=== PATIENT | female | born 1950 | race Caucasian/White ===

== ENCOUNTER 2020-05-26 15:50 | Outpatient (CLI) | payer MEDICARE, OTHER, SELFPAY ==
--- NOTE | 2020-05-26 | USCV_ITS ---
Devora Riojas Age: 70 Gender: F : 1950 Exam Date: 05/26/2020 16:07 Ordering Phys: Florina NesbittP Technologist: Denzel Hammer Exam Location: [facility] – [place]_ Indication: LEFT LEG PAIN, HISTORY OF DVT PROCEDURES: Venous duplex imaging was performed in only the left lower extremity. The following venous structures were evaluated: common femoral vein, profunda vein, proximal portion of the greater saphenous vein, superficial femoral vein, and the popliteal vein. In addition, the posterior tibial and peroneal trunk were evaluated. Serial compression, augmentation maneuvers, and spectral Doppler flow evaluation were performed. FINDINGS: There appears to be no thrombus in the deep system of the left lower extremity at this time. There does appear to be thrombus extending from below the knee to the groin within the left greater saphenous vein. At this time the thrombus does not extend into the common femoral vein but is in the saph fem junction. CONCLUSIONS No evidence of DVT in the above-mentioned identifiable veins. The greater saphenous vein was found to have a thrombus extending from the below-knee area up to the saphenofemoral junction. There is no involvement of the common femoral vein No similar previous studies are available for comparison Dr Maryellen Cano MD [facility] (Electronically Signed) Final Date: 26 May 2020 20:06 S
== END 2020-05-26 15:51 | disposition home or self-care (01) ==
LOC: RAD 15:59
PROVIDERS: PCP Registered Nurse; Visit Provider Registered Nurse
DX: Z86.718 Personal history of other venous thrombosis and embolism (principal); M79.605 Pain in left leg
CPT/HCPCS: 93971

== ENCOUNTER 2023-02-23 12:16 | Emergency (ER) | payer MEDICARE, OTHER, SELFPAY ==
[2023-02-23] VITALS (7 sets, daily range): BP systolic 137–171; BP diastolic 89–110; PULSE 62–86; RESP 16–18; TEMP 36.9; O2SAT 92–98
--- NOTE | 2023-02-23 12:37 | XRR_ITS ---
PROCEDURE INFORMATION: Exam: XR Chest Exam date and time: 02/23/2023 1:18 PM Age: 73 years old Clinical indication: Cough and dyspnea; Additional info: Dyspnea/cough TECHNIQUE: Imaging protocol: Radiologic exam of the chest. Views: 1 view. COMPARISON: No relevant prior studies available. FINDINGS: Lungs: There is no consolidation. Pleural spaces: There is no pleural effusion or pneumothorax. Heart/Mediastinum: Cardiomediastinal contours are unremarkable. Bones/joints: Bones are unremarkable. Other findings: Small nodules project over the upper lungs bilaterally, measuring up to 5 mm. XR/XR chest 1V portable [id number] IMPRESSION: 1. No acute findings. 2. Small bilateral lung nodules. Recommend nonemergent follow-up chest CT.
--- NOTE | 2023-02-23 12:45 | ED_ITS ---
HPI - Dizziness General: Chief Complaint: Dizziness Stated Complaint: seeing flahing , dizzy Time Seen by Provider: 02/23/23 12:24 Source: patient History of Present Illness: HPI Narrative: 73-year-old female who presents to the emergency room complaining of dizziness flashing in her vision on occasion she has no symptoms at this time. She describes a sparkling like sensation in her eyes. She had it intermittently for the last couple of days none at this time she has no associated chest pain or shortness of breath but does have some palpations. She has had previous MIs and also had a stroke in the past she has no localizing symptoms no disturbance of gait. MD elicited complaint: dizziness and lightheadedness Onset (ago): hour(s) Timing: gradual onset Description: lightheadedness Exacerbating factors: nothing Relieving factors: nothing Associated symptoms: Denies chest pain, chills, malaise, nausea, nasal congestion or vomiting Review of Systems Const: Denies: fever(s), chills, body aches, change in appetite, fatigue or malaise ENMT: Denies: throat pain, ear or mastoid pain, nasal discharge or nasal congestion Card: Denies: chest pain, edema, dyspnea on exertion or orthopnea Resp: Denies: dyspnea, productive cough or non-productive cough GI: Denies: abdominal pain, nausea, vomiting, hematemesis, coffee ground emesis, diarrhea, constipation, bloating, hematochezia or melena : Denies: flank pain, difficulty voiding, dysuria, urinary frequency or urinary urgency Skin/Breast: Denies: rash or pruritus PFSH ED PFSH: Medical History Anxiety Depression History of blood clots History of nephrolithotomy with removal of calculi Hypertension Myocardial infarct Stroke Surgical History History of cholecystectomy History of heart artery stent Family History Father CAD (coronary artery disease) Chronic kidney disease (CKD) Hypertension Mother Diabetes Hypertension Denies family history of Lung disease Cancer Stroke Social History Smoking and tobacco status: current every day smoker cigarettes Packs smoked per day: 0.5 Alcohol intake: never Substance/Drug Use: never Adopted: No Caregiver/support person: No Lives independently: No Household members: spouse Marital status: service: No Current occupational status: retired Sexually active: Yes Do you think of yourself as: Straight/Heterosexual Current gender identity: Female Physical Exam Const: COMMON NORMALS: no acute distress GENERAL APPEARANCE: cooperative and comfortable ORIENTATION/CONSCIOUSNESS: Yes awake, Yes oriented to person, Yes oriented to place and Yes oriented to time HENMT: COMMON NORMALS: normocephalic, atraumatic and hearing grossly normal bilaterally HEAD & SCALP: normocephalic and atraumatic Resp: COMMON NORMALS: normal respiratory effort, No retractions, No use of accessory muscles and clear to auscultation bilaterally AUSCULTATION: clear to auscultation bilaterally Cardio: COMMON NORMALS: regular rate, regular rhythm and No murmurs present (Cardio) RATE: regular rate RHYTHM: regular rhythm GI: COMMON NORMALS: Soft to palpation and No hepatosplenomegaly present AUSCULTATION: Yes normoactive bowel sounds PALPATION: Yes Soft to palpation, No Tenderness to palpation present (GI), No Guarding due to palpation present (GI) and Yes No hepatosplenomegaly present Extremity: COMMON NORMALS: normal to inspection, capillary refill normal, no clubbing, cyanosis or edema, no calf tenderness and no pedal edema Neuro: SENSORIUM/ORIENTATION: Yes oriented to person, Yes oriented to place and Yes oriented to time OTHER: Normal gait no focal neurologic symptoms no neurologic deficits. No facial asymmetry normal visual hernandez Skin: COMMON NORMALS: no rashes or lesions noted GENERAL SKIN EXAM: no sandra hes or lesions noted Course Vital Signs: Vital signs: Vital Signs Temperature 98.5 F 02/23/23 12:22 Pulse Rate 63 02/23/23 16:44 Respiratory Rate 16 02/23/23 16:44 Blood Pressure 161/96 02/23/23 16:44 Pulse Oximetry 92 02/23/23 16:44 Oxygen Delivery Me thod Room Air 02/23/23 16:44 MDM - Dizziness Medical Decision Making Labs imaging and EKG reviewed no acute findings. We will discharge patient home set up for an outpatient stress test. She has no focal neurologic deficits and her symptoms not reproducible she is ambulating the halls to and from the bathroom without significant abnormality or difficulty or gait disturbance. No evidence of posterior stroke. She does have some palpitations additionally she is also having some elevated blood pressure recommend she monitor this closely and follow-up with her primary care doctors any worsening or change symptoms return. Medical Records I reviewed the patient's medical records. Lab Data I reviewed the patient's lab results. 02/23/23 12:51 02/23/23 12:51 Radiology Impressions Chest X-Ray 02/23/23 12:37 IMPRESSION: 1. No acute findings. 2. Small bilateral lung nodules. Recommend nonemergent follow-up chest CT. Laboratory Results WBC 10.9 10^3/uL (4.0-10.0) H 02/23/23 12:51 RBC 5.28 10^6/uL (4.1-5.3) 02/23/23 12:51 Hgb 15.7 g/dL (11.5-15.3) H 02/23/23 12:51 Hct 47.1 % (37.0-47.0) H 02/23/23 12:51 MCV 89.2 fl (81-99) 02/23/23 12:51 MCH 29.7 pg (28.0-34.0) 02/23/23 12:51 MCHC 33.3 g/dL (30.0-36.0) 02/23/23 12:51 RDW 13.2 % (12.1-15.1) 02/23/23 12:51 Plt Count 262 10^3/cmm (130-400) 02/23/23 12:51 MPV 9.5 fL (7.4-10.4) 02/23/23 12:51 Neut % (Auto) 73.3 % 02/23/23 12:51 Lymph % (Auto) 19.8 % 02/23/23 12:51 Bracken % (Auto) 5.8 % 02/23/23 12:51 Eos % (Auto) 0.5 % 02/23/23 12:51 Baso % (Auto) 0.3 % 02/23/23 12:51 Neut # (Auto) 8.02 10^3/uL (1.8-7.7) H 02/23/23 12:51 Lymph # (Auto) 2.2 10^3/uL (0.8-4.8) 02/23/23 12:51 Bracken # (Auto) 0.6 10^3/uL (0.2-0.9) 02/23/23 12:51 Eos # (Auto) 0.1 10^3/uL (0.0-0.8) 02/23/23 12:51 Baso # (Auto) 0.0 10^3/uL (0.0-0.1) 02/23/23 12:51 Nucleated RBC % (auto) 0 % 02/23/23 12:51 Nucleated RBCs # 0.0 /100WBC 02/23/23 12:51 Sodium 136 mmol/L (136-145) 02/23/23 12:51 Potassium 3.7 mmol/L (3.5-5.1) 02/23/23 12:51 Chloride 101 mmol/L (98-107) 02/23/23 12:51 Carbon Dioxide 24 mmol/L (22-29) 02/23/23 12:51 Anion Gap 14.7 (5-19) 02/23/23 12:51 BUN 12 mg/dL (8-23) 02/23/23 12:51 Creatinine 0.8 mg/dL (0.5-0.9) 02/23/23 12:51 GFR Calculation Not Reportable 02/23/23 12:51 Glucose 163 mg/dL (65-115) H 02/23/23 12:51 Calculated Osmolality 285 mOsm/kg (285-295) 02/23/23 12:51 Calcium 9.5 mg/dL (8.5-10.5) 02/23/23 12:51 Total Bilirubin 0.4 mg/dL (0.15-1.2) 02/23/23 12:51 AST 16 U/L (0-32) 02/23/23 12:51 ALT 10 U/L (0-33) 02/23/23 12:51 Alkaline Phosphatase 68 U/L (35-105) 02/23/23 12:51 Troponin T Baseline 52 ng/L (0-10) H 02/23/23 12:51 Troponin T 120 Minute 54.95 ng/L (0-10) H 02/23/23 15:21 Delta Troponin T 2.95 ABS# (0-10) 02/23/23 15:21 Total Protein 6.6 g/dL (6.6-8.7) 02/23/23 12:51 Albumin 3.7 g/dL (3.5-5.2) 02/23/23 12:51 Globulin 2.9 g/dL (1.3-4.6) 02/23/23 12:51 Urine Color Yellow (Yellow) 02/23/23 14:16 Urine Appearance Clear (CLEAR) 02/23/23 14:16 Urine pH 6 (5-7) 02/23/23 14:16 Ur Specific Celoron 1.010 (1.005-1.030) 02/23/23 14:16 Urine Protein Neg (Negative) 02/23/23 14:16 Urine Glucose (UA) Norm (Normal) 02/23/23 14:16 Urine Ketones 1+ (Negative) H 02/23/23 14:16 Urine Blood 2+ (Negative) H 02/23/23 14:16 Urine Nitrate Negative (Negative) 02/23/23 14:16 Urine Bilirubin Neg (Negative) 02/23/23 14:16 Urine Urobilinogen 1 mg/dL (Negative) H 02/23/23 14:16 Ur Leukocyte Esterase Negative (Negative) 02/23/23 14:16 Urine RBC 0-4 /hpf (0-2) H 02/23/23 14:16 Urine WBC None /hpf (0-5) 02/23/23 14:16 Ur Squamous Epith Cells 0-4 /hpf (0-5) H 02/23/23 14:16 Amorphous Sediment Not Reportable 02/23/23 14:16 Urine Bacteria Trace /hpf (NONE) 02/23/23 14:16 Discharge Plan Discharge Patient Disposition: Home Clinical Impression: Elevated blood pressure reading, Dizziness, Hx of coronary artery disease Condition: Stable Prescriptions: No Action aspirin [Murali Chewable Aspirin] 81 mg tablet,chewable 81 mg PO DAILY cholecalciferol (vitamin D3) 1,250 mcg (50,000 unit) capsule 1,250 mcg PO BID famotidine 20 mg tablet 20 mg PO BID pantoprazole [Protonix] 20 mg tablet,delayed release (DR/EC) 20 mg PO DAILY clonazepam 0.5 mg tablet 0.5 mg PO TID PRN (Reason: Anxiety) metoprolol succinate 25 mg tablet extended release 24 hr 25 mg PO DAILY loratadine [Allergy Relief (loratadine)] 10 mg tablet 10 mg PO DAILY simvastatin 10 mg tablet 10 mg PO DAILY Eliquis 5 mg tablet 5 mg PO BID 90 Days Qty: 180 0RF Rx Instructions: 340B docusate sodium 50 mg Capsule 50 mg PO BID levothyroxine 50 mcg tablet 50 mcg PO DAILY CoQ-10 30 mg Capsule 30 mg PO DAILY Discharge Orders: Discharge ED (Routine); Ordered 02/23/23 Ordered By: Gordo Duncan Referrals: Florina Nesbitt FNP [Primary Care Provider] - Discharge Diet: Usual diet Discharge Activity: Increase activity as tolerated Patient Instructions: Opioid Safety, Pain Management Activity Restrictions/Additional Instructions: Monitor your blood pressure daily and log your blood pressures to show your primary care doctor. Contact your primary care doctor for follow-up sometime within the next week if at all possible. Continue current medications. Avoid strenuous activity Case management make arrangements for you to outpatient cardiac stress test. Coding Level of Care Code ED Lease Administrator for Chanell Banda
[2023-02-23 12:57] LABS: Basophils % 0.3 %; Eosinophils # 0.1 10^3/uL (0.0-0.8); Eosinophils % 0.5 %; Hematocrit 47.1 % (37.0-47.0); Hemoglobin 15.7 g/dL (11.5-15.3); Lymphocytes # 2.2 10^3/uL (0.8-4.8); Lymphocytes % 19.8 %; Mean Corpuscular HGB Conc 33.3 g/dL (30.0-36.0); Mean Corpuscular Hemoglobin 29.7 pg (28.0-34.0); Mean Corpuscular Volume 89.2 fl (81-99); Mean Platelet Volume 9.5 fL (7.4-10.4); Monocytes # 0.6 10^3/uL (0.2-0.9); Monocytes % 5.8 %; Neutrophils # 8.02 10^3/uL (1.8-7.7); Neutrophils % 73.3 %; Nucleated Red Blood Cells % 0 %; Platelet Count 262 10^3/cmm (130-400); Red Blood Count 5.28 10^6/uL (4.1-5.3); Red Cell Distribution Width 13.2 % (12.1-15.1); White Blood Count 10.9 10^3/uL (4.0-10.0)
--- NOTE | 2023-02-23 12:57 | ECG_ITS ---
[facility] Test Date: 2023-02-23 Pat Name: Devora Riojas Department: Room: Gender: Female Oil Heaterman: : 1950 Requested By: Gordo Parks Order Number: [id number] Shelia MD: Art Watts M.D. Measurements Intervals [place] Rate: 74 P: 52 VT: 132 QRS: 5 QRSD: 85 T: 61 QT: 403 QTc: 448 Interpretive Statements SINUS RHYTHM No previous ECG available for comparison Electronically Signed On 02-23-2023 18:24:26 CDT by Art Watts M.D. [id number]
--- NOTE | 2023-02-23 13:16 | PC.NURSE ---
PT HAS DIZZINESS AND VISION CHANGES. STROKE SCALE WAS COMPLETED BY NURSE AND PT SCORED A 0. PT IS AT BASELINE AND HAS NO LKW. PHYSICIAN NOTIFIED NO FURTHER ORDERS
[2023-02-23 13:26] LABS: Troponin(5th) Baseline 52 ng/L (0-10)
[2023-02-23 13:29] LABS: Alanine Aminotransferase 10 U/L (0-33); Albumin Level 3.7 g/dL (3.5-5.2); Alkaline Phosphatase 68 U/L (35-105); Aspartate Amino Transferase 16 U/L (0-32); Blood Urea Nitrogen 12 mg/dL (8-23); Calcium 9.5 mg/dL (8.5-10.5); Carbon Dioxide 24 mmol/L (22-29); Chloride 101 mmol/L (98-107); Globulin 2.9 g/dL (1.3-4.6); Glucose 163 mg/dL (65-115); Osmolality Calculated 285 mOsm/kg (285-295); Sodium 136 mmol/L (136-145); Total Bilirubin 0.4 mg/dL (0.15-1.2); Total Protein 6.6 g/dL (6.6-8.7)
[2023-02-23 13:33] LABS: Anion Gap 14.7 (5-19); Potassium 3.7 mmol/L (3.5-5.1)
[2023-02-23 14:46] LABS: Bilirubin Urine Neg (Negative); Blood Urine 2+ (Negative); Glucose Urine UA Norm (Normal); Ketones Urine 1+ (Negative); Nitrate Urine Negative (Negative); Protein Urine Neg (Negative); Urine Appearance Clear (CLEAR); Urine Color Yellow (Yellow); Urobilinogen Urine 1 mg/dL (Negative); pH Urine 6 (5-7)
[2023-02-23 14:47] LABS: Leukocyte Esterase Urine Negative (Negative)
[2023-02-23 14:49] LABS: Add Urine Microscopic? YES
[2023-02-23 14:50] LABS: Add Urine Culture? No; Bacteria Urine TRACE /hpf; RBC Urine 0-4 /hpf (0-2); Squamous Epithelial Cell Urine 0-4 /hpf (0-5)
--- NOTE | 2023-02-23 14:51 | ECG_ITS ---
[facility] Test Date: 2023-02-23 Pat Name: Devora Riojas Department: Room: Gender: Female Exchange Administrator: : 1950 Requested By: Gordo Parks Order Number: [id number] Reading MD: Art Watts M.D. Measurements Intervals [place] Rate: 63 P: 61 ND: 151 QRS: 13 QRSD: 88 T: 63 QT: 441 QTc: 453 Interpretive Statements SINUS RHYTHM Compared to ECG 02/23/2023 13:09:43 No significant changes Electronically Signed On 02-23-2023 18:26:32 CDT by Art Watts M.D. [id number]
[2023-02-23 16:22] LABS: Troponin 5 2HR 54.95 ng/L (0-10)
[2023-02-23 16:23] LABS: Troponin 5 2HR Delta 2.95 ABS# (0-10)
--- NOTE | 2023-02-24 11:54 | DCPLANNER ---
Addendum entered by Martha Restrepo 03/12/23 14:40: counseling case manager received notification from centralized scheduling about the pending order for a stress test: I have tried to reach this patient 3 different times and 3 different days. I have left voicemails with all calls. ?I am going to inactivate the account. My enterprise systems manager Analy said I should send you this email. Devora Riojas 54 Selena Scan Thank You [facility] Centralized Scheduling [id number] Original Note: counseling case manager had message to schedule an outpatient stress test for patient. counseling case manager faxed signed order to centralized scheduling, who will call patient with appointment information.
== END 2023-02-23 17:22 | disposition home or self-care (01) ==
PROVIDERS: Emergency Provider Family Medicine; PCP Registered Nurse
DX: R42 Dizziness and giddiness (principal); R03.0 Elevated blood-pressure reading, without diagnosis of hypertension
CPT/HCPCS: 36415; 71045; 80053; 81001; 84484; 85025; 93005; 99285

== ENCOUNTER 2024-07-04 09:53 | Emergency (ER) | payer MEDICARE, OTHER, SELFPAY ==
[2024-07-04] VITALS (38 sets, daily range): BP systolic 124–166; BP diastolic 74–100; PULSE 64–82; RESP 11–27; TEMP 36.8; O2SAT 91–96; BMI 29.8
--- NOTE | 2024-07-04 10:11 | ECG_ITS ---
[facility] Test Date: 2024-07-04 Pat Name: Devora Riojas Department: Room: Gender: Female Community Health Promoter: : 1950 Requested By: Elise Parks Order Number: [id number] Shelia MD: Zaki Durand M.D. Measurements Intervals [place] Rate: 81 P: 69 DE: 146 QRS: 22 QRSD: 83 T: 69 QT: 391 QTc: 455 Interpretive Statements SINUS RHYTHM Compared to ECG 02/23/2023 14:51:22 No significant changes Electronically Signed On 07-05-2024 20:14:16 RESERVATIONS CLERK by Zaki Durand M.D. [id number]
--- NOTE | 2024-07-04 10:11 | XRR_ITS ---
PROCEDURE INFORMATION: Exam: XR Chest Exam date and time: 07/04/2024 10:25 AM Age: 74 years old Clinical indication: Pain; Chest pressure; Additional info: Chest pain TECHNIQUE: Imaging protocol: Radiologic exam of the chest. Views: 1 view. COMPARISON: CR (CHEST, ) 02/23/2023 1:18 PM FINDINGS: Lungs: The lungs are hyperinflated. No consolidation is appreciated. Pleural spaces: Unremarkable. No pleural effusion. No pneumothorax. Heart/Mediastinum: The heart is slightly enlarged. There is calcified plaque involving the aorta. Bones/joints: Unremarkable. XR/XR chest 1V portable [id number] IMPRESSION: 1. Mild cardiomegaly. 2. Lung hyperinflation.
[2024-07-04 10:20] LABS: Basophils # 0.1 10^3/uL (0.0-0.1); Basophils % 0.4 %; Eosinophils # 0.1 10^3/uL (0.0-0.8); Eosinophils % 0.4 %; Hematocrit 49.8 % (36-47); Lymphocytes # 2.3 10^3/uL (0.8-4.8); Mean Corpuscular HGB Conc 32.9 g/dL (30-55); Mean Corpuscular Hemoglobin 29.2 pg (27-33); Mean Corpuscular Volume 88.6 fl (85-98); Mean Platelet Volume 9.6 fL (7.4-10.4); Monocytes # 0.8 10^3/uL (0.2-0.9); Monocytes % 6.6 %; Neutrophils # 8.24 10^3/uL (1.8-7.7); Neutrophils % 72.2 %; Nucleated Red Blood Cells % 0 %; Platelet Count 285 10^3/cmm (157-399); Red Blood Count 5.62 10^6/uL (3.85-5.65); Red Cell Distribution Width 13.1 % (12.1-15.1); White Blood Count 11.41 10^3/uL (3.29-11.43)
--- NOTE | 2024-07-04 10:22 | W.ED.CHESTPA ---
HPI - Chest Pain General: Chief Complaint: Chest Pain Stated Complaint: burning sensation in chest and rt arm Time Seen by Provider: 07/04/24 09:56 History of Present Illness: 74-year-old female with a history of coronary artery disease, hypertension and pulmonary embolism with chronic Eliquis anticoagulation who presents emergency room today after having had some chest pain yesterday. She had a burning chest pain across her chest. She says it felt similar to when she had a heart attack previously but just not as bad. She thought it would go away so she did not come in. And has resolved at this time but she still feels weak. Generalized weakness. Nothing focal. No new cough. No focal motor deficits. States has been having fairly regular headaches recently. No altered mental status. No lower extremity swelling. No nausea or vomiting. Related Data Home Medications Medication Instructions Recorded Confirmed aspirin 81 mg chewable tablet 81 mg PO DAILY 08/01/22 02/23/23 (Murali Chewable Low Dose Aspirin) cholecalciferol (vitamin D3) 1,250 1,250 mcg PO BID 08/01/22 02/23/23 mcg (50,000 unit) capsule clonazepam 0.5 mg tablet 0.5 mg PO TID PRN Anxiety 08/01/22 02/23/23 famotidine 20 mg tablet 20 mg PO BID 08/01/22 02/23/23 loratadine 10 mg tablet (Allergy 10 mg PO DAILY 08/01/22 02/23/23 Relief (loratadine)) metoprolol succinate 25 mg 25 mg PO DAILY 08/01/22 02/23/23 tablet,extended release 24 hr pantoprazole 20 mg tablet,delayed 20 mg PO DAILY 08/01/22 02/23/23 release (Protonix) simvastatin 10 mg tablet 10 mg PO DAILY 08/01/22 02/23/23 coenzyme Q10 30 mg capsule 30 mg PO DAILY 02/23/23 02/23/23 docusate sodium 50 mg capsule 50 mg PO BID 02/23/23 02/23/23 levothyroxine 50 mcg tablet 50 mcg PO DAILY 02/23/23 02/23/23 Previous Rx's Medication Instructions Recorded apixaban 5 mg tablet (Eliquis) 5 mg PO BID 90 days #180 tabs 08/01/22 Allergies Allergy/AdvReac Type Severity Reaction Status Date / Time codeine Allergy upset Verified 02/23/23 12:28 stomach lovastatin Allergy Unknown Verified 02/23/23 12:28 Review of Systems Narrative: Constitutional symptoms: Negative except as documented in HPI. Skin symptoms: Negative except as documented in HPI. Eye symptoms: Negative except as documented in HPI. ENMT symptoms: Negative except as documented in HPI. Respiratory symptoms: Negative except as documented in HPI. Cardiovascular symptoms: Negative except as documented in HPI. Gastrointestinal symptoms: Negative except as documented in HPI. Genitourinary symptoms: Negative except as documented in HPI. Musculoskeletal symptoms: Negative except as documented in HPI. Neurologic symptoms: Negative except as documented in HPI. Psychiatric symptoms: Negative except as documented in HPI. Endocrine symptoms: Negative except as documented in HPI. PFSH ED PFSH: Medical History Anxiety Depression History of blood clots History of nephrolithotomy with removal of calculi Hypertension Myocardial infarct Stroke Surgical History History of cholecystectomy History of heart artery stent Family History Father CAD (coronary artery disease) Chronic kidney disease (CKD) Hypertension Mother Diabetes Hypertension Denies family history of Lung disease Cancer Stroke Social History Smoking and tobacco/nicotine status: current every day tobacco/nicotine user cigarettes Packs smoked per day: 0.5 Alcohol intake: never Substance/Drug Use: never Adopted: No Caregiver/support person: No Lives independently: No Household members: spouse Marital status: service: No Current occupational status: retired Sexually active: Yes Do you think of yourself as: Straight/Heterosexual Current gender identity: Female Physical Exam Narrative: EXAM NARRATIVE: General: Alert, no acute distress. Skin: Warm, dry. Head: Normocephalic, atraumatic. Neck: Supple, trachea midline. Eye: Extraocular movements are intact. Ears, nose, mouth and throat: mucosa moist. Cardiovascular: Regular, Normal peripheral perfusion. Respiratory: Lungs are clear to auscultation, respirations are non-labored, breath sounds are equal, Symmetrical chest wall expansion. Gastrointestinal: Soft, Nontender, Non distended Musculoskeletal: Normal ROM, no deformity. Neurological: Alert and oriented, No focal neurological deficit observed. Psychiatric: Cooperative, appropriate mood & affect. Course Vital Signs: Vital signs: Vital Signs Temperature 98.2 F 07/04/24 09:56 Pulse Rate 68 07/04/24 12:15 Respiratory Rate 15 07/04/24 12:15 Blood Pressure 157/100 07/04/24 12:15 Pulse Oximetry 93 07/04/24 12:15 Oxygen Delivery Me thod Room Air 07/04/24 11:15 MDM - Chest Pain Medical Decision Making Differential diagnosis for patient with chest pain includes but is not limited to and based on the above HPI, review of systems and physical exam: Pneumonia. unstable angina. angina. Acute coronary syndrome / [place]. Pulmonary embolism. Costochondritis / musculoskeletal. Pleurisy. Pericarditis. Esophageal spasm. Pancreatis. Cholecystitis. Orders placed to evaluate differential diagnosis based on the above differential, HPI and physical exam EKG: Time 10 00 a.m. Rate 81. Normal sinus rhythm, No ST-T changes, no ectopy, normal ND & QRS intervals, This was reviewed and interpreted by myself the ER physician at 10:05 AM. Chest x-ray: No acute process. No infiltrate. No pneumothorax. This was reviewed and interpreted by myself the emergency room physician. I also reviewed the radiology report. Lab Review: Laboratory results were reviewed and interpreted by myself the emergency room physician. Lab work is fairly unremarkable. No leukocytosis. No anemia. No renal failure. Troponin negative. I reviewed the patient's medical record. Reexamination: Patient remained stable. No increased work of breathing. No altered mental status. No focal motor deficits. This chest pain is on the right side and different than when she had her previous heart attack she says now. I offered admission for further evaluation and possible stress test. She says she absolutely does not want a stress test and she just wants to go home. Given that her cardiac markers are negative serially and this been going on for several days I find is reasonable. Assessment and plan: Noncardiac chest pain - Discharged home - Discussed findings and plan with patient. Answered any questions. - All laboratory values were reviewed and interpreted personally by myself, the ER physician - All imaging was reviewed and interpreted personally by myself, the ER physician. - Evaluation and treatment of this problem were appropriate in the emergency setting Lab Data 07/04/24 10:13 07/04/24 10:13 Radiology Impressions Chest X-Ray 07/04/24 10:11 IMPRESSION: 1. Mild cardiomegaly. 2. Lung hyperinflation. Laboratory Results WBC 11.41 10^3/uL (3.29-11.43) 07/04/24 10:13 RBC 5.62 10^6/uL (3.85-5.65) 07/04/24 10:13 Hgb 16.40 g/dL (11.27-16.99) 07/04/24 10:13 Hct 49.8 % (36-47) H 07/04/24 10:13 MCV 88.6 fl (85-98) 07/04/24 10:13 MCH 29.2 pg (27-33) 07/04/24 10:13 MCHC 32.9 g/dL (30-55) 07/04/24 10:13 RDW 13.1 % (12.1-15.1) 07/04/24 10:13 Plt Count 285 10^3/cmm (157-399) 07/04/24 10:13 MPV 9.6 fL (7.4-10.4) 07/04/24 10:13 Neut % (Auto) 72.2 % 07/04/24 10:13 Lymph % (Auto) 20.0 % 07/04/24 10:13 Shannon % (Auto) 6.6 % 07/04/24 10:13 Eos % (Auto) 0.4 % 07/04/24 10:13 Baso % (Auto) 0.4 % 07/04/24 10:13 Neut # (Auto) 8.24 10^3/uL (1.8-7.7) H 07/04/24 10:13 Lymph # (Auto) 2.3 10^3/uL (0.8-4.8) 07/04/24 10:13 Shannon # (Auto) 0.8 10^3/uL (0.2-0.9) 07/04/24 10:13 Eos # (Auto) 0.1 10^3/uL (0.0-0.8) 07/04/24 10:13 Baso # (Auto) 0.1 10^3/uL (0.0-0.1) 07/04/24 10:13 Nucleated RBC % (auto) 0 % 07/04/24 10:13 Nucleated RBCs # 0.0 /100WBC 07/04/24 10:13 Sodium 137 mmol/L (136-145) 07/04/24 10:13 Potassium 3.4 mmol/L (3.5-5.1) L 07/04/24 10:13 Chloride 100 mmol/L (98-107) 07/04/24 10:13 Carbon Dioxide 24 mmol/L (22-29) 07/04/24 10:13 Anion Gap 16.4 (5-19) 07/04/24 10:13 BUN 11 mg/dL (8-23) 07/04/24 10:13 Creatinine 0.9 mg/dL (0.5-0.9) 07/04/24 10:13 GFR Calculation Not Reportable 07/04/24 10:13 Glucose 142 mg/dL (65-115) H 07/04/24 10:13 Calculated Osmolality 286 mOsm/kg (285-295) 07/04/24 10:13 Calcium 9.4 mg/dL (8.5-10.5) 07/04/24 10:13 Total Bilirubin 0.4 mg/dL (0.15-1.2) 07/04/24 10:13 AST 13 U/L (0-32) 07/04/24 10:13 ALT 7 U/L (0-33) 07/04/24 10:13 Alkaline Phosphatase 81 U/L (35-105) 07/04/24 10:13 Troponin T Baseline 8 ng/L (0-10) 07/04/24 10:13 Troponin T 120 Minute 6.50 ng/L (0-10) 07/04/24 12:18 Delta Troponin T -1.50 ABS# (0-10) L 07/04/24 12:18 NT-Pro-B Natriuret Pep 522 pg/mL (0-125) H 07/04/24 10:13 Total Protein 6.6 g/dL (6.6-8.7) 07/04/24 10:13 Albumin 4.1 g/dL (3.5-5.2) 07/04/24 10:13 Globulin 2.5 g/dL (1.3-4.6) 07/04/24 10:13 All radiology interpretation(s) finalized by discharge Discharge Plan Discharge Patient Disposition: Home Clinical Impression: Non-cardiac chest pain Condition: Stable Prescriptions: No Action aspirin [Murali Chewable Aspirin] 81 mg tablet,chewable 81 mg PO DAILY cholecalciferol (vitamin D3) 1,250 mcg (50,000 unit) capsule 1,250 mcg PO BID famotidine 20 mg tablet 20 mg PO BID pantoprazole [Protonix] 20 mg tablet,delayed release (DR/EC) 20 mg PO DAILY clonazepam 0.5 mg tablet 0.5 mg PO TID PRN (Reason: Anxiety) metoprolol succinate 25 mg tablet extended release 24 hr 25 mg PO DAILY loratadine [Allergy Relief (loratadine)] 10 mg tablet 10 mg PO DAILY simvastatin 10 mg tablet 10 mg PO DAILY Eliquis 5 mg tablet 5 mg PO BID 90 Days Qty: 180 0RF Rx Instructions: 340B docusate sodium 50 mg Capsule 50 mg PO BID levothyroxine 50 mcg tablet 50 mcg PO DAILY CoQ-10 30 mg Capsule 30 mg PO DAILY Discharge Orders: Discharge ED (Routine); Ordered 07/04/24 Ordered By: Elise Gonzalez Referrals: Florina Nesbitt FNP [Primary Care Provider] - Discharge Diet: Usual diet Discharge Activity: Increase activity as tolerated Patient Instructions: Noncardiac Chest Pain (ED), Opioid Safety, Pain Management Activity Restrictions/Additional Instructions: Thank you for choosing [facility] for your healthcare needs today. Please realize this is an emergency room and that we are providing you with a medical screening exam and this may not be complete and all inclusive of all the testing and or work up that you may need to determine your ailment or severity of your illness. You have been screened and evaluated and felt safe for discharge. Health conditions do change or evolve sometimes and as such it is important that you follow up with your Primary Doctor to be re checked, 3-5 days is a general good time frame for follow up. You are always welcome to return to the ED for re assessment if your symptoms are worsening or you have new concerns Coding Level of Care Code ED Investment Consultant for Chanell Banda
[2024-07-04 10:36] LABS: Alanine Aminotransferase 7 U/L (0-33); Albumin Level 4.1 g/dL (3.5-5.2); Alkaline Phosphatase 81 U/L (35-105); Anion Gap 16.4 (5-19); Aspartate Amino Transferase 13 U/L (0-32); Blood Urea Nitrogen 11 mg/dL (8-23); Calcium 9.4 mg/dL (8.5-10.5); Carbon Dioxide 24 mmol/L (22-29); Chloride 100 mmol/L (98-107); Creatinine Clr Calc Pharmacy 53.1924; Globulin 2.5 g/dL (1.3-4.6); Glucose 142 mg/dL (65-115); Osmolality Calculated 286 mOsm/kg (285-295); Potassium 3.4 mmol/L (3.5-5.1); Sodium 137 mmol/L (136-145); Total Bilirubin 0.4 mg/dL (0.15-1.2); Total Protein 6.6 g/dL (6.6-8.7)
[2024-07-04 10:38] LABS: Troponin(5th) Baseline 8 ng/L (0-10)
[2024-07-04 10:52] LABS: NT Pro B Type Natriuretic Pept 522 pg/mL (0-125)
--- NOTE | 2024-07-04 12:00 | ECG_ITS ---
[facility] Test Date: 2024-07-04 Pat Name: Devora Riojas Department: Room: Gender: Female Faculty Neuropsychologist: : 1950 Requested By: Elise Parks Order Number: [id number] Shelia MD: Zaki Durand M.D. Measurements Intervals [place] Rate: 63 P: 68 [place]: 148 QRS: 2 QRSD: 89 T: 70 QT: 439 QTc: 451 Interpretive Statements SINUS RHYTHM Compared to ECG 07/04/2024 10:00:24 No significant changes Electronically Signed On 07-05-2024 20:30:54 [employer] by Zaki Durand M.D. [email or web address]
== END 2024-07-04 13:20 | disposition home or self-care (01) ==
PROVIDERS: Emergency Provider Emergency Medicine; PCP Registered Nurse
DX: R07.89 Other chest pain (principal); Z79.82 Long term (current) use of aspirin; F17.210 Nicotine dependence, cigarettes, uncomplicated; I10 Essential (primary) hypertension; Z86.73 Personal history of transient ischemic attack (TIA), and cerebral infarction without residual deficits
CPT/HCPCS: 36415; 71045; 80053; 83880; 84484; 85025; 93005; 99285